=== PATIENT | male | born 1970 | race Caucasian/White ===

== ENCOUNTER 2021-07-18 05:03 | Inpatient (IN) | payer MEDICAID ==
[~2021-07-18] VITALS: Ht 175.3 cm; Wt 81.2 kg
[2021-07-18] MEDS ORDERED: TETANUS, DIPHTHERIA, PERTUSSIS VAC/PF 0.5ML (>10YR OLD) IM ONE (05:45)
[2021-07-18 06:24] LABS: BASOPHILS % 0.2 % (0.0-2.0); EOSINOPHILS % 0.2 % (0.0-5.0); HEMATOCRIT. 49.5 % (42.0-52.0); LYMPHOCYTES % 17.1 % (20.0-50.0); MEAN CORPUSCULAR HEMOGLOBIN 32.9 pg (28.0-32.0); MEAN CORPUSCULAR VOLUME 95.9 fL (80.0-94.0); MEAN PLATELET VOLUME 7.2 fl (7.4-10.4); MONOCYTES % 6.3 % (2.0-8.0); NEUTROPHILS % 76.2 % (40.0-76.0); PLATELET 258 x1000/uL (130-400); RED BLOOD CELL COUNT 5.16 mill/uL (4.7-6.1); RED CELL DISTRIBUTION WIDTH 12.7 % (11.6-14.6)
[2021-07-18 06:27] LABS: CHLORIDE 103 mEq/L (98-107)
[2021-07-18 06:33] LABS: ETHANOL BLOOD < 10 mg/dL
[2021-07-18] MEDS ORDERED: BACITRACIN ZINC OINT UDPKT TOP ONE (08:15)
[2021-07-18] MEDS ORDERED: LIDOCAINE HCL/EPINEPHRINE 1%-EPI 1:100,000 50 ML VIAL INFIL ONE (08:30)
[2021-07-18] MEDS ORDERED: LIDOCAINE HCL/EPINEPHRINE 1%-EPI 1:100,000 20 ML VIAL INFIL NR (08:45)
[2021-07-18] MEDS ORDERED: HYDROCODONE/ACETAMINOPHEN 5/325MG TABLET PO ONE (11:45)
[2021-07-18] MEDS ORDERED: DIPHENHYDRAMINE 50MG/ML VIAL IV ONE (13:00)
[2021-07-18] MEDS ORDERED: ACETAMINOPHEN 325MG TABLET PO PRN (13:30)
[2021-07-18] MEDS ORDERED: ONDANSETRON HCL 4MG/2ML INJ IV PRN (13:30)
[2021-07-18 15:52] VITALS: BP 134/89
[2021-07-18 16:00] VITALS: BP 134/89
[2021-07-18] MEDS ORDERED: PRED5TAB PO (16:01)
[2021-07-18] MEDS ORDERED: DIPHENHYDRAMINE HCL/ZINC ACET 28 GM CREAM TOP PRN (16:30)
[2021-07-18] MEDS ORDERED: TRAMADOL 50MG TABLET PO PRN (19:00)
[2021-07-18 20:00] VITALS: BP 117/65
[2021-07-18] MEDS: KETOROLAC 30MG/ML VIAL IV PRN (21:23)
[2021-07-18] MEDS: DIPHENHYDRAMINE 25MG CAPSULE PO PRN (21:24)
[2021-07-18] MEDS: HYDROCORTISONE 2.5% OINT 20GM TOP SCH (21:26)
[2021-07-19] VITALS (7 sets, daily range): BP systolic 101–116; BP diastolic 65–76
[2021-07-19] MEDS: KETOROLAC 30MG/ML VIAL IV PRN (08:34)
[2021-07-19] MEDS: DIPHENHYDRAMINE 25MG CAPSULE PO PRN (08:34)
[2021-07-19] MEDS: HYDROCORTISONE 2.5% OINT 20GM TOP SCH (08:36)
== END 2021-07-19 15:55 | disposition home or self-care (01) | DRG 48 ==
LOC: ER 05:03 → 6WST 11:45 → EDBEDREQ 11:49 → EDBEDREQTM 11:49 → ENRESERV 13:16
PROVIDERS: ADMIT Internal Medicine; ATTEND Internal Medicine
PROC: 0CQ4XZZ Repair Buccal Mucosa, External Approach (ICD-10-PCS; principal; 2021-07-18)
PROC: 0CQ0XZZ Repair Upper Lip, External Approach (ICD-10-PCS; 2021-07-18)
DX: G90.8 Other disorders of autonomic nervous system (principal); R21 Rash and other nonspecific skin eruption; S01.21XA Laceration without foreign body of nose, initial encounter; S01.511A Laceration without foreign body of lip, initial encounter; S02.2XXA Fracture of nasal bones, initial encounter for closed fracture; X58.XXXA Exposure to other specified factors, initial encounter; Y93.89 Activity, other specified; Y92.89 Other specified places as the place of occurrence of the external cause; Y99.8 Other external cause status
CPT/HCPCS: 36415; 70486; 80053; 80320; 83880; 84484; 85025; 90715; 93005; 93306; 93880; 99285; J1200; J1885; J3490; Q0163; G0480